=== PATIENT | female | born 1965 | race Two or more races ===

== ENCOUNTER 2018-06-08 20:19 | Emergency (ER) | payer OTHER ==
[~2018-06-08] VITALS: Ht 165.1 cm; Wt 56.7 kg
== END 2018-06-08 21:49 | disposition home or self-care (01) ==
LOC: ER 20:19
DX: F06.4 Anxiety disorder due to known physiological condition (principal)

== ENCOUNTER 2018-11-01 13:07 | Outpatient (CLI) | payer OTHER | END 2018-11-01 13:16 | disposition home or self-care (01) | LOC: MAMO-SONO 13:07 | DX: Z12.31 Encounter for screening mammogram for malignant neoplasm of breast (principal); N60.11 Diffuse cystic mastopathy of right breast; N60.12 Diffuse cystic mastopathy of left breast ==

== ENCOUNTER 2021-06-28 09:49 | Outpatient (CLI) | payer OTHER | END 2021-06-28 10:04 | disposition home or self-care (01) | LOC: MAMO-SONO 09:49 | PROVIDERS: ATTEND Obstetrics & Gynecology | DX: N60.11 Diffuse cystic mastopathy of right breast (principal); N60.12 Diffuse cystic mastopathy of left breast ==

== ENCOUNTER → 2023-05-08 | Outpatient (CLI) | payer OTHER | END | disposition home or self-care (01) | LOC: MAMO-SONO 09:45 | PROVIDERS: ATTEND Internal Medicine | DX: Z12.31 Encounter for screening mammogram for malignant neoplasm of breast (principal) ==

== ENCOUNTER 2023-05-31 12:28 | Outpatient (CLI) | payer OTHER | END 2023-05-31 12:36 | disposition home or self-care (01) | LOC: RAD 12:28 | PROVIDERS: ATTEND Ophthalmology | DX: R91.8 Other nonspecific abnormal finding of lung field (principal) ==